=== PATIENT | male | born 1940 | race Caucasian/White ===

== ENCOUNTER 2017-02-03 09:19 | Emergency (ER) | payer MEDICARE, BC ==
[~2017-02-03] VITALS: Wt 100.0 kg
[~2017-02-03 09:19] MED LIST: EPINEPHrine 0.1 MG/ML SYG ONE; NA BICARBONATE 8.4% 50 ML SYG ONE
[2017-02-03 09:20] VITALS: RESP 16
[2017-02-03] MEDS ORDERED: NORepinephrine 8MG/250 ML (PMX 250 ML ONE (09:38)
--- NOTE | 2017-02-03 10:01 | ERD ---
ER Documentation Chief Complaint Date/Time DATE: 02/03/17 TIME: 09:46 Chief Complaint CALLED CP WHEN EMS ARRIVED CPR IN PROGRESS. V FIB BY EMS AND SHOCKED. HPI 76-year-old male brought in by EMS after cardiac arrest at home, witnessed by family. Reportedly the patient told his family he did not feel well and collapsed. CPR was started on seen by family, however it was being down on the couch with poor quality per EMS. They were on scene for about 25 minutes performing CPR. His initial rhythm was PEA. After 2 rounds of epinephrine patient went into V. fib arrest. He received a few defibrillations and amiodarone 450 mg IV total. Prior to transfer to the ED, he had regained pulses. When they arrived outside of the ED, he had lost his pulses again. When the patient arrived he was in PEA without pulses. CPR was initiated. ROS Unable to obtain due to medical condition FmHx Family History: other (Unable to obtain) Physical Exam Physical Exam VITAL SIGNS: GENERAL: Patient is lying on gurney and is unresponsive HEAD: Head is normocephalic. No evidence of trauma. No scalp or facial swelling EYES: Pupils are nonreactive. ENT: Intubated. Actively being bagged. Oropharynx and nasopharynx are clear NECK: Supple. No masses RESPIRATORY: Breath sounds equal bilaterally with bagging CV: No heart sounds heard. No palpable carotid or femoral pulses ABDOMEN: Soft, non-distended. No masses EXTREMITIES: No deformity. Right tibial IO in place SKIN: No jaundice. No diaphoresis NEUROLOGIC: Not alert. Unresponsive to external stimuli Results 24 hrs Current Medications Medications (Trade) Dose Ordered Sig/Bessie Route PRN Reason Start Time Stop Time Status Last Admin Dose Admin Norepinephrine (Levophed) 250 ml @ ud STK-MED ONCE .ROUTE 02/03/17 09:38 02/03/17 09:39 DC Procedures/MDM EKG: Rate/Rhythm: Normal Sinus Rhythm QRS, ST, T-waves: Right bundle branch block Impression: No evidence of ischemia or arrhythmia When the patient arrived he had no pulses and was in PEA. ACLS was performed. See code sheet for details. There was a short period where after a few rounds of epinephrine, patient regained pulses. I checked his ET tube placement with the glide scope and the ET tube was going through the cords. He was subsequently hypotensive with right bundle branch block on his EKG. differential included acute coronary event versus dissection versus aortic rupture versus pulmonary embolism. Prior to workup, patient lost pulses again. At this point, CPR had been performed for over 25 minutes, in addition to the 25 minutes prior to arrival. Patient's prognosis is very poor at this time and his chances of neurologic recovery are very poor as well. Decision was made to stop CPR. Time of was . Family was not available. Departure Diagnosis: Primary Impression: Cardiac arrest MELVI LUNA MD Feb 03, 2017 09:57
== END 2017-02-03 14:10 | disposition expired ==
LOC: E/R 09:19
DX: I46.9 Cardiac arrest, cause unspecified (principal)
CPT/HCPCS: 31500; 92950; 94002; 99285; J0171